=== PATIENT | female | born 1940 | race Caucasian/White ===

== ENCOUNTER → 2024-10-30 | Day surgery (SDC) | payer MEDICARE ==
[2024-10-24 15:55] LABS: BASOPHILS % 0.6 % (0.0-1.0); EOSINOPHILS % 3.1 % (0.0-6.0); LYMPHOCYTES % 30.2 % (18.0-39.1); MONOCYTES % 7.0 % (4.4-11.3); NEUTROPHILS % 58.6 % (38.7-80.0); RED CELL DISTRIBUTION WIDTH 13.0 % (11.7-14.4)
[~2024-10-30] MED LIST: ACETAMINOPHEN-1 EAC4 PO; DEXMEDETOMIDINE HCL 2 ML ONE; EPHEDRINE SULFATE INJ 50 MG/ML VIAL ONE; FENTANYL CITRATE/PF 100MCG/2 ML INJ ONE; GLIMEPIRIDE2 MG PO; LIDOCAINE HCL 2% LOCAL INJ 5 ML SDV VIAL INJ ONE; MIDAZOLAM HCL 2 MG/2 ML VIAL ONE; NIFEDIPINE10 MG PO; PRAVASTATIN SOD20 MG PO; PROPOFOL IV EMULSION 10 MG/ML 20 ML VIAL ONE; TEMAZEPAM15 MG PO; ZETIA10 MG PO
[2024-10-30] MEDS: LACTATED RINGER'S 1,000 ML ONE (05:57)
[2024-10-30 07:47] VITALS: TEMP 97.1
[2024-10-30 08:15] VITALS: BP 118/53; PULSE 72; RESP 16; O2SAT 100
== END | disposition home or self-care (01) ==
LOC: OR 05:12
PROVIDERS: ATTEND Plastic Surgery
DX: S01.302A Unspecified open wound of left ear, initial encounter (principal); X58.XXXA Exposure to other specified factors, initial encounter; I10 Essential (primary) hypertension; E11.9 Type 2 diabetes mellitus without complications; Z79.84 Long term (current) use of oral hypoglycemic drugs; Z79.899 Other long term (current) drug therapy; Z01.810 Encounter for preprocedural cardiovascular examination; Z01.812 Encounter for preprocedural laboratory examination
CPT/HCPCS: 14060; 36415 ×2; 69110; 82948; 85025; 93005; J0690; J2003; J2250; J2704; J3010; J7121